=== PATIENT | female | born 1985 | race Caucasian/White ===

== ENCOUNTER 2019-09-23 12:35 | Emergency (ER) | payer OTHER ==
[~2019-09-23] VITALS: Ht 162.6 cm; Wt 108.9 kg
[2019-09-23] MEDS ORDERED: CYMBALTA60 MG PO (12:49)
[2019-09-23] MEDS ORDERED: PROTONIX 20 MG20 MG PO (12:49)
[2019-09-23] MEDS ORDERED: SINGULAIR 10 MG10 M1 PO (12:49)
[2019-09-23] MEDS ORDERED: TOPROL XL100 MG PO (12:49)
[2019-09-23] MEDS ORDERED: ANTI DEPRESSANT (12:50)
[2019-09-23] MEDS ORDERED: ZYRTEC10 M5 PO (12:50)
[2019-09-23 13:16] LABS: URINE BILIRUBIN NEGATIVE (Negative); URINE BLOOD 1+ (Negative); URINE CLARITY CLEAR; URINE COLOR YELLOW; URINE GLUCOSE-RANDOM NEGATIVE (Negative); URINE KETONES NEGATIVE (Negative); URINE LEUKOCYTES-REFLEX NEGATIVE (Negative); URINE NITRITE-REFLEX NEGATIVE (Negative); URINE PROTEIN NEGATIVE (Negative); URINE SPECIFIC GRAVITY 1.015 (1.005-1.030); URINE UROBILINOGEN 0.2 E.U./dl (0.2-1.0)
[2019-09-23 13:37] LABS: CASTS None Seen /LPF (None Seen); CRYSTALS None Seen /LPF (None Seen); MUCUS 4-6 Moderate strn/LPF (None Seen); SQUAMOUS 0-3 Few /LPF (0-3); URINE RBC None Seen /HPF (0-2); URINE WBC-REFLEX 0-5 Rare /HPF (0-5)
[2019-09-23 13:44] LABS: ABSOLUTE BASOPHILS 0.1 thou/uL (0.0-0.2); ABSOLUTE EOSINOPHILS 0.1 thou/uL (0.0-0.7); ABSOLUTE LYMPHOCYTES 2.5 thou/uL (0.8-5.3); ABSOLUTE MONOCYTES 0.7 thou/uL (0.0-1.2); BASOPHILS 0.6 %; HEMATOCRIT 35.4 % (37.0-47.0); HEMOGLOBIN 11.9 gm/dL (12.0-15.0); MCH 27.5 pg (26.0-34.0); MCHC 33.7 g/dL (28.0-37.0); MCV 81.5 fL (80.0-100.0); MPV 8.1 fl. (7.2-11.1); NUCLEATED RBCS 0 /100WBC; PLATELET COUNT* 340 thou/uL (150-400); POLYS 70.4 %; RBC 4.34 mil/uL (4.20-5.00); RDW-CV 15.4 % (10.5-14.5); WBC 11.3 thou/uL (4.0-11.0)
[2019-09-23 13:54] LABS: CALCIUM 8.6 mg/dL (8.5-10.1); CREATININE 0.7 mg/dL (0.6-1.3); POTASSIUM 3.8 mmol/L (3.5-5.1)
[2019-09-23 13:58] LABS: TOTAL BILIRUBIN 0.4 mg/dL (<0.1-1.0); TOTAL PROTEIN 6.8 g/dL (6.4-8.2)
[2019-09-23] MEDS ORDERED: NORCO 5-325 TA1 EAC1 PO (15:07)
[2019-09-23] MEDS ORDERED: BENTYL 20 MG TA20 M1 PO (15:07)
[2019-09-23] MEDS ORDERED: MACROBID 100 M100 M2 PO (15:07)
[2019-09-23] MEDS ORDERED: ONDANSETRON HCL4 M2 PO (15:07)
[2019-09-23 15:32] VITALS: BP 125/80
--- NOTE | 2019-09-23 16:08 | EKG ---
[place] [address] ELECTROCARDIOGRAM REPORT Name: OLENAPorshaELVINJEFFRY FIGUEROA Room: [facility]#: [id number] Admission: 09/23/19 Attend Phys: Discharge: 09/23/19 Date of : 85 Report #: [id number] THIS REPORT FOR: //name// [facility] ED Test Date: 2019-09-23 Test Time: 14:09:36 Pat Name: ELVIN MARLOW Department: Room: Gender: F Commercial Journeyman Electrician: ZAYRA : 1985 Requested By: Sujatha Dudley Order Number: [id number] MD: Lan Hartley Measurements Intervals [place] Rate: 70 P: 52 [place]: 130 QRS: 19 QRSD: 96 T: -18 QT: 419 QTc: 453 Interpretive Statements Sinus rhythm Nonspecific T abnormalities, inferior leads No previous ECG available for comparison Electronically Signed On 09-23-2019 16:08:00 [employer] by Lan Hartley [email or web address] <ELECTRONICALLY SIGNED> By: Lan Hartley MD, [facility] 09/23/19 1608 1409 1409 Lan Hartley MD, FACC /EPI
== END 2019-09-23 15:33 | disposition home or self-care (01) ==
LOC: M.ERS 12:35
PROVIDERS: Nurse Practitioner Family
DX: N39.0 Urinary tract infection, site not specified (principal); J45.909 Unspecified asthma, uncomplicated; K58.9 Irritable bowel syndrome, unspecified; Z90.49 Acquired absence of other specified parts of digestive tract; Z98.890 Other specified postprocedural states